=== PATIENT | female | born 1975 | race Caucasian/White ===

== ENCOUNTER → 2018-07-20 | Outpatient (CLI) | payer OTHER ==
--- NOTE | 2018-07-21 11:20 | MM ---
Reason for exam: screening (asymptomatic). Last mammogram was performed 6 years and 4 months ago. History: Family history of breast cancer in maternal aunt at age 70. Physical Findings: A clinical breast exam by your physician is recommended on an annual basis and results should be correlated with mammographic findings. MG 3D Screening Mammo W/Cad Bilateral CC and MLO view(s) were taken. Prior study comparison: March 15, 2012, CAD bilateral diagnostic mammogram. There are scattered fibroglandular densities. No significant changes when compared with prior studies. ASSESSMENT: Benign, BI-RAD 2 RECOMMENDATION: Routine screening mammogram of both breasts in 1 year.
== END | disposition home or self-care (01) ==
LOC: RADMAMWWP 07:40
PROVIDERS: ATTEND Obstetrics & Gynecology
DX: Z12.31 Encounter for screening mammogram for malignant neoplasm of breast (principal); Z80.3 Family history of malignant neoplasm of breast
CPT/HCPCS: 77063; 77067

== ENCOUNTER → 2018-08-17 | Outpatient (CLI) | payer OTHER ==
--- NOTE | 2018-08-17 14:52 | MR ---
EXAMINATION TYPE: MR brain wo con DATE OF EXAM: 08/17/2018 COMPARISON: NONE HISTORY: Migraines TECHNIQUE: Multiplanar, multisequence images of the brain and brainstem is performed without IV contrast. FINDINGS: Diffusion weighted images demonstrate no evidence of a recent infarct or other diffusion ab normality. There is no extra-axial fluid collection. There are very few scattered foci of subcortica l T2/FLAIR hyperintensity measuring 1 to 2 mm (approximately 2 on the right and 3 on the left althoug h 2 of these may be artifact in the temporal lobes). The ventricular system and cisternal spaces are normal in size and appearance. The brain volume is age appropriate. Midline structures demonstrate normal morphology. The craniocervical junction appears within normal limits. The dural venous sinuses appear patent. The visualized sinuses demonstrate a left maxillary m ucosal retention cyst measuring 1.3 cm and mild mucosal thickening of the ethmoid and maxillary sinus es. Frontal sinuses and sphenoid sinuses are well aerated as are the mastoid air cells. The globes ar e intact. IMPRESSION: 1. Few punctate foci of subcortical white matter change may be on the basis of microangiopathy or seq uela of headaches. Demyelinating disease is not suspected on MRI given the distribution. 2. Mild paranasal sinus disease and 1.3 cm left maxillary mucosal retention cyst.
== END ==
LOC: RADMRIMAIN 10:47
PROVIDERS: ATTEND Psychiatry & Neurology Neurology
DX: R90.89 Other abnormal findings on diagnostic imaging of central nervous system (principal)
CPT/HCPCS: 70551

== ENCOUNTER → 2021-06-05 | Outpatient (CLI) | payer OTHER ==
[2021-06-06 14:29] LABS: Coronavirus SARS CoV-2 Not Detected (Not Detected)
== END | disposition home or self-care (01) ==
LOC: LABPAT 15:37
PROVIDERS: ATTEND Surgery Plastic and Reconstructive Surgery
DX: Z03.818 Encounter for observation for suspected exposure to other biological agents ruled out (principal); Z20.822 Contact with and (suspected) exposure to COVID-19
CPT/HCPCS: U0003; C9803; U0005

== ENCOUNTER 2021-06-10 08:14 | Day surgery (SDC) | payer OTHER ==
[2021-06-08 09:08] VITALS: BMI 38.9
--- NOTE | 2021-06-10 04:23 | P.GSHP ---
History of Present Illness H&P Date: 06/10/21 CHIEF COMPLAINT: Colon screen HISTORY OF PRESENT ILLNESS: The patient is a 46-year-old female who presents for colon screen. Lower endoscopy was offered for further evaluation and management. PAST MEDICAL HISTORY: Please see list. PAST SURGICAL HISTORY: Please see list. MEDICATIONS: Please see list. ALLERGIES: Please see list. SOCIAL HISTORY: No illicit drug use FAMILY HISTORY: No reports of Crohn disease or ulcerative colitis. REVIEW OF ORGAN SYSTEMS: CONSTITUTIONAL: No reports of fevers or chills. PHYSICAL EXAM: VITAL SIGNS: Stable GENERAL: Well-developed pleasant in no acute distress. HEENT: No scleral icterus. Extraocular movements grossly intact. Moist buccal mucosa. NECK: Supple without lymphadenopathy. CHEST: Unlabored respirations. Equal bilateral excursions. CARDIOVASCULAR: Regular rate and rhythm. Distal 2+ pulses. ABDOMEN: Soft, nontender, nondistended. MUSCULOSKELETAL: No clubbing, cyanosis, or edema. ASSESSMENT: 1. Colon screen. PLAN: 1. Recommend proceeding with a lower endoscopy Past Medical History Past Medical History: GERD/Reflux Additional Past Medical History / Comment(s): MIGRAINES History of Any Multi-Drug Resistant Organisms: None Reported Past Surgical History: Cholecystectomy Past Anesthesia/Blood Transfusion Reactions: No Reported Reaction Additional Past Anesthesia/Blood Transfusion Reaction / Comment(s): CLAUSTROPHOBIC Past Psychological History: No Psychological Hx Reported Smoking Status: Former smoker Past Alcohol Use History: Occasional Past Drug Use History: None Reported - Past Family History Father Family Medical History: Cancer, Diabetes Mellitus, Deep Vein Thrombosis (DVT) Additional Family Medical History / Comment(s): COLON Medications and Allergies Home Medications Medication Instructions Recorded Confirmed Type Naproxen 500 mg PO DIRECTED PRN 06/08/21 06/08/21 History Omeprazole 1 tab PO DAILY 06/08/21 06/08/21 History Allergies Allergy/AdvReac Type Severity Reaction Status Date / Time Penicillins Allergy Unknown Verified 06/08/21 09:01 Childhood Sulfa (Sulfonamide Allergy Unknown Verified 06/08/21 09:01 Antibiotics) sulfamethoxazole Allergy Rash/Hives Verified 06/08/21 09:01 [From Bactrim] trimethoprim [From Bactrim] Allergy Rash/Hives Verified 06/08/21 09:01 prochlorperazine AdvReac Unknown Verified 06/08/21 09:01 [From Compazine]
[~2021-06-10 08:14] MED LIST: LACTATED RINGERS 1,000 ML IV SCH; LIDOCAINE 1% (10MG/ML) FOR IV START INTRADERMA PRN
[2021-06-10 09:35] VITALS: TEMP 97.5
[2021-06-10] MEDS ORDERED: fentaNYL (PF) 50 MCG/ML 2 ML AMP ONE (10:03)
[2021-06-10] MEDS ORDERED: PROPOFOL 10 MG/ML 20 ML VIAL IV ONE (10:03)
[2021-06-10] MEDS ORDERED: LIDOCAINE 1% INJ 10MG/ML (20 ML MDV) ONE (10:03)
[2021-06-10] MEDS ORDERED: MIDAZOLAM 2 MG/2 ML VIAL ONE (10:03)
--- NOTE | 2021-06-10 10:27 | P.PCN ---
Date of Procedure: 06/10/21 Description of Procedure: PREOPERATIVE DIAGNOSIS: Family history malignant colon polyps Colonoscopy screening POSTOPERATIVE DIAGNOSIS: Tubular adenoma descending colon OPERATION: Colonoscopy to the ileocecal valve and appendiceal orifice, cecum Colonoscopy with hot snare polypectomy SURGEON: Tatiana Arias MD. ANESTHESIA: MAC. INDICATIONS: The patient is an 46-year-old male who presents family history of malignant colon. This is her first colonoscopy. Benefits and risks were described and informed consent was obtained. DESCRIPTION OF PROCEDURE: The patient had undergone Sutab prep. The patient had been brought into the operating room and laid in the left lateral decubitus position. After adequate intravenous sedation, the rectum was examined with 2% lidocaine jelly. No external hemorrhoids were encountered. The rectal tone was within normal limits. No lesions were palpated in the rectal vault. An Olympus colonoscope was advanced until the cecum, ileocecal valve and appendiceal orifice were clearly viewed. The prep was good. Sigmoid diverticulosis was encountered. Colonic polyps were found and removed. No evidence of focal colitis was found. Retroflexion of the scope demonstrated grade 1 internal hemorrhoids without active bleeding or inflammation. The colon was desufflated. The patient had tolerated the procedure well. Withdrawal time was over 6 minutes. FINDINGS: Aronchick preparation quality scale 2 (1-5) Internal hemorrhoids, grade 1 No external hemorrhoids No arteriovenous malformations. Sigmoid diverticulosis Removal of 1 polyps: - Snare polypectomy 30 cm from the anal verge, 10 mm tubulovillous adenoma polyp, sigmoid colon No focal colitis. RECOMMENDATIONS: Repeat colonoscopy in 2024 Plan - Discharge Summary Discharge Rx Participant: No New Discharge Prescriptions: Continue Naproxen 500 mg PO DIRECTED PRN PRN Reason: Migraine Headache Omeprazole 1 tab PO DAILY Discharge Medication List Naproxen 500 mg PO DIRECTED PRN 06/08/21 [History] Omeprazole 1 tab PO DAILY 06/08/21 [History] Follow up Appointment(s)/Referral(s): Tatiana Arias MD [STAFF PHYSICIAN] - As Needed Patient Instructions/Handouts: Diverticulosis Diet (GEN), Diverticulosis (DC), Colorectal Polyps (GEN) Activity/Diet/Wound Care/Special Instructions: Repeat colonoscopy in 3 years2034 Discharge Disposition: HOME SELF-CARE
[2021-06-10 10:48] VITALS: BP 118/68; PULSE 81; RESP 18
== END 2021-06-10 10:55 | disposition home or self-care (01) ==
LOC: ORWHC2ENDO 08:14
PROVIDERS: ATTEND Surgery Plastic and Reconstructive Surgery
DX: D12.5 Benign neoplasm of sigmoid colon (principal); Z12.11 Encounter for screening for malignant neoplasm of colon; K57.30 Diverticulosis of large intestine without perforation or abscess without bleeding; K64.0 First degree hemorrhoids; K21.9 Gastro-esophageal reflux disease without esophagitis; Z80.0 Family history of malignant neoplasm of digestive organs; Z90.49 Acquired absence of other specified parts of digestive tract; G43.909 Migraine, unspecified, not intractable, without status migrainosus; F40.240 Claustrophobia; Z87.891 Personal history of nicotine dependence; Z83.3 Family history of diabetes mellitus; Z80.9 Family history of malignant neoplasm, unspecified; Z82.49 Family history of ischemic heart disease and other diseases of the circulatory system; Z79.899 Other long term (current) drug therapy; Z88.0 Allergy status to penicillin; Z88.2 Allergy status to sulfonamides; Z88.8 Allergy status to other drugs, medicaments and biological substances
CPT/HCPCS: 81025; 88305; 45385; J2250; J2001; J3010; J2704

== ENCOUNTER → 2022-05-10 | Outpatient (CLI) | payer OTHER ==
--- NOTE | 2022-05-10 10:03 | XR ---
EXAMINATION TYPE: XR KUB DATE OF EXAM: 05/10/2022 9:23 AM CLINICAL HISTORY: Right posterior flank pain. No history of kidney stones. TECHNIQUE: supine KUB images of the abdomen are obtained. COMPARISON: None. FINDINGS: There is moderate stool throughout the entire colon particularly in the descending and moore sverse colon. There is no visceromegaly, pneumoperitoneum, or abnormal calcification appreciated. In particular, there is no abnormal calcification projecting over the right kidney or ureter. Several ca lcifications in the right hemipelvis favor phleboliths. The lung bases not imaged. Clips project over the right upper quadrant, presumably from previous cholecystectomy. There are facet degenerative anthony nges of the lower lumbosacral spine. IMPRESSION: No abnormal calcification projecting over the right kidney or ureter. Calcifications in the right hem ipelvis favor phleboliths. Moderate stool throughout the colon but particularly in the ascending and transverse colon.
== END | disposition home or self-care (01) ==
LOC: RADXRMAIN 09:08
PROVIDERS: ATTEND Urology
DX: I87.8 Other specified disorders of veins (principal); R19.5 Other fecal abnormalities; N23 Unspecified renal colic
CPT/HCPCS: 74018

== ENCOUNTER 2022-05-12 04:05 | Inpatient (IN) | payer OTHER ==
[2022-05-12] MEDS ORDERED: KETOROLAC 15 MG/ML 1 ML VIAL IVP STA (04:18)
[2022-05-12] MEDS ORDERED: ONDANSETRON 4 MG/2 ML VIAL IVP STA (04:18)
[2022-05-12] MEDS ORDERED: SODIUM CHLORIDE 0.9% 1,000 ML IV ONE (04:18)
[2022-05-12 04:44] LABS: Basophils # (A) 0.1 k/uL (0-0.2); Basophils % (A) 1 %; Eosinophils # (A) 0.2 k/uL (0-0.7); Eosinophils % (A) 2 %; HCT 43.5 % (34.0-46.0); HGB 14.9 gm/dL (11.4-16.0); Lymphocytes % (A) 24 %; MCH 29.7 pg (25.0-35.0); MCHC 34.2 g/dL (31.0-37.0); Mean Platelet Volume 7.7; Monocytes # (A) 0.4 k/uL (0-1.0); Monocytes % (A) 5 %; Neutrophils # (A) 5.6 k/uL (1.3-7.7); Neutrophils % (A) 67 %; Platelet Count 288 k/uL (150-450); RDW 12.8 % (11.5-15.5); WBC 8.3 k/uL (3.8-10.6)
[2022-05-12 04:57] LABS: ALT 37 U/L (4-34); AST 32 U/L (14-36); African American GFR (CKD) >90 (>60 ml/min/1.73 sqM); Albumin 4.5 g/dL (3.5-5.0); Alkaline Phosphatase 87 U/L (38-126); Anion Gap 8 mmol/L; Blood Urea Nitrogen 18 mg/dL (7-17); Calcium 9.6 mg/dL (8.4-10.2); Carbon Dioxide 26 mmol/L (22-30); Chloride 104 mmol/L (98-107); Glucose 133 mg/dL (74-99); Magnesium 1.7 mg/dL (1.6-2.3); Non-African American GFR(CKD) >90 (>60 ml/min/1.73 sqM); Potassium 4.6 mmol/L (3.5-5.1); Sodium 138 mmol/L (137-145); Total Bilirubin 0.5 mg/dL (0.2-1.3); Total Protein 7.1 g/dL (6.3-8.2)
[2022-05-12 04:59] LABS: Appearance,Urine Clear (Clear); Bacteria,Urine Rare /hpf; Bilirubin,Urine Negative (Negative); Blood,Urine Large (Negative); Color,Urine Yellow; Glucose,Urine (UA) Negative (Negative); Ketones,Urine Negative (Negative); Leukocyte Esterase,Urine Small (Negative); Mucus,Urine Rare /hpf; Nitrite,Urine Negative (Negative); Protein,Urine 1+ (Negative); RBC,Urine 87 /hpf (0-5); Specific Gravity,Urine 1.027 (1.001-1.035); Squamous Epithelial Cell,Urine 3 /hpf (0-4); Urobilinogen,Urine <2.0 mg/dL (<2.0); WBC,Urine 4 /hpf (0-5)
--- NOTE | 2022-05-12 05:09 | CT ---
EXAMINATION TYPE: CT abdomen pelvis wo con DATE OF EXAM: 05/12/2022 COMPARISON: None HISTORY: N/V WORSENING RT FLANK PAIN SINCE DEC CT DLP: 1085.6 mGycm Automated exposure control for dose reduction was used. Images obtained from the diaphragm to the floor the pelvis with no contrast. Lung bases are clear. No pleural effusion. Heart size is normal. No pericardial effusion. Liver splee n and stomach pancreas appear intact. The bile duct are not dilated. There are clips from cholecystec patience. There is no adrenal mass. Right kidney is enlarged with hydronephrosis and hydroureter. There is a 6 mm obstructing calculus in the distal right ureter. The bladder distends smoothly. Uterus is large an d there appears to be thickening of the endometrial cavity with high attenuation. No internal hernia. No free fluid in the pelvis. No evidence of adnexal mass. The appendix is posterior and appears norm al. There is no mesenteric edema. No ascites or free air. No bowel obstruction. No calculus seen within t he kidneys. Left kidney appears normal. The lumbar vertebra have normal alignment. Posterior elements are intact. No compression fracture. [place] pelvis is intact. The hip joints are intact. IMPRESSION: Obstructing calculus in the distal right ureter with right-sided hydronephrosis and hydroureter. Enlarged uterus with possible endometrial mass. Ultrasound is recommended for further evaluation.
[2022-05-12] MEDS ORDERED: METOCLOPRAMIDE 5 MG/ML 2 ML VIAL IVP STA (05:44)
[2022-05-12] MEDS ORDERED: MORPHINE SULFATE 4 MG/ML SYRINGE IVP STA (05:44)
[2022-05-12] MEDS ORDERED: NALOXONE 0.4 MG/ML 1 ML VIAL IV PRN (05:59)
[2022-05-12] MEDS ORDERED: MORPHINE SULFATE 4 MG/ML SYRINGE IV PRN (05:59)
[2022-05-12] MEDS ORDERED: KETOROLAC 15 MG/ML 1 ML VIAL IVP PRN (05:59)
--- NOTE | 2022-05-12 06:06 | ED ---
General Adult HPI - General Chief complaint: Nausea/Vomiting/Diarrhea Stated complaint: Flank Pain Time Seen by Provider: 05/12/22 04:14 Source: patient Mode of arrival: ambulatory Limitations: no limitations - History of Present Illness Initial comments: This is a 47-year-old female who presents emergency department for right-sided flank pain. The patient was being seen and evaluated at her urologist office last week and did have an x-ray performed that showed possible stones in the right side. The patient was scheduled to have a computed tomography scan on Tuesday however she stated she had continued and worsening right-sided flank pain that began last night. The patient stated the pain became so severe she needed to be seen in the emergency department. The patient reported associated nausea and vomiting as well as radiation of the right flank to the groin. The patient denied any similar episodes in the past. The patient on evaluation was in mild distress secondary to right flank pain. The patient denied any fevers and chills. - Related Data Home Medications Medication Instructions Recorded Confirmed Naproxen 500 mg PO DIRECTED PRN 06/08/21 06/08/21 Omeprazole 1 tab PO DAILY 06/08/21 06/08/21 Allergies Allergy/AdvReac Type Severity Reaction Status Date / Time Penicillins Allergy Unknown Verified 05/12/22 04:11 Childhood Sulfa (Sulfonamide Allergy Unknown Verified 05/12/22 04:11 Antibiotics) sulfamethoxazole Allergy Rash/Hives Verified 05/12/22 04:11 [From Bactrim] trimethoprim [From Bactrim] Allergy Rash/Hives Verified 05/12/22 04:11 prochlorperazine AdvReac Unknown Verified 05/12/22 04:11 [From Compazine] Review of Systems ROS Statement: Those systems with pertinent positive or pertinent negative responses have been documented in the HPI. ROS Other: All systems not noted in ROS Statement are negative. Past Medical History Past Medical History: No Reported History History of Any Multi-Drug Resistant Organisms: None Reported Past Surgical History: Ablation, Cholecystectomy Past Psychological History: No Psychological Hx Reported Smoking Status: Never smoker Past Alcohol Use History: Occasional Past Drug Use History: None Reported General Exam Limitations: no limitations General appearance: alert, in distress (In moderate distress secondary to right flank pain) Head exam: Present: atraumatic, normocephalic, normal inspection Eye exam: Present: normal appearance, PERRL Pupils: Present: normal accommodation ENT exam: Present: normal exam, normal oropharynx, mucous membranes moist Neck exam: Present: normal inspection, full ROM Respiratory exam: Present: normal lung sounds bilaterally Cardiovascular Exam: Present: regular rate, normal rhythm, normal heart sounds GI/Abdominal exam: Present: soft, normal bowel sounds Extremities exam: Present: normal inspection, full ROM Back exam: Present: normal inspection, full ROM, CVA tenderness (R) Neurological exam: Present: alert, oriented X3, CN II-XII intact Psychiatric exam: Present: normal affect, normal mood Skin exam: Present: warm, dry Course Vital Signs 05/12/22 04:11 Temperature 98 F Pulse Rate 96 Respiratory 16 Rate Blood Pressure 152/98 O2 Sat by Pulse 96 Oximetry Medical Decision Making - Medical Decision Making Was pt. sent in by a medical professional or institution (, PA, CREEL CLERK, urgent care, hospital, or penitentiary...) When possible be specific @ -No Did you speak to anyone other than the patient for history (EMS, parent, family, police, friend...)? What history was obtained from this source @ -No Did you review nursing and triage notes (agree or disagree)? Why? @ -I reviewed and agree with nursing and triage notes Were old charts reviewed (outside hosp., previous admission, EMS record, old EKG, old radiological studies, urgent care reports/EKG's, penitentiary records)? Report findings @ -No old charts were reviewed Differential Diagnosis (chest pain, altered mental status, abdominal pain women, abdominal pain men, vaginal bleeding, weakness, fever, dyspnea, syncope, headache, dizziness, GI bleed, back pain, seizure, CVA, palpatations, mental health)? @ -Kidney stone, hydronephrosis, UTI, pyelonephritis EKG interpreted by me (3pts min.). @ -None X-rays interpreted by me (1pt min.). @ -None done CT interpreted by me (1pt min.). @ -Computed tomography scan of the abdomen and pelvis without contrast was obtained and was interpreted by myself showing an obstructing calculus in the distal right ureter with right-sided hydronephrosis and hydroureter with a stone measuring 6 mm. There is also an enlarged uterus with possible endometrial mass in an ultrasound was recommended at this time. U/S interpreted by me (1pt. min.). @ -Complete pelvic ultrasound was ordered and was pending at this time. What testing was considered but not performed or refused? (CT, X-rays, U/S, labs)? Why? @ -None What meds were considered but not given or refused? Why? @ -None Did you discuss the management of the patient with other professionals (professionals i.e. Dr., PA, CREEL CLERK, lab, RT, psych nurse, medical social worker, automotive technician, teacher, inspectors and regulatory officers, nurse case management)? Give summary @ -Yes, on-call urologist, Dr. Villatoro. Was smoking cessation discussed for >3mins.? @ -No Was critical care preformed (if so, how long)? @ -No Were there social determinants of health that impacted care today? How? (Homel essness, low income, unemployed, alcoholism, drug addiction, transportation, low edu. Level, literacy, decrease access to med. care, alf, rehab)? @ -No Was there de-escalation of care discussed even if they declined (Discuss DNR or withdrawal of care, Hospice)? DNR status @ -No What co-morbidities impacted this encounter? (DM, HTN, Smoking, COPD, CAD, Cancer, CVA, ARF, Chemo, Hep., AIDS, mental health diagnosis, sleep apnea, morbid obesity)? @ -None Was patient admitted / discharged? Hospital course, mention meds given and route, prescriptions, significant lab abnormalities, going to OR and other pertinent info. @ -The patient was seen and evaluated emergency department. Physical exam, the patient was resting in bed in moderate distress secondary to right flank pain. Laboratory workup was obtained and showed a urinalysis consistent with UTI with blood present. Computed tomography scan did confirm this. The patient did receive Toradol and Zofran and on reevaluation only had some mild improvement. The urologist on-call, Dr. Villatoro, was contacted regarding the patient as she did have a 6 L stone. He did suggest that the patient could be discharged home if her pain was under control however would evaluate the patient in observation if the patient continued pain. On reevaluation, the patient did have continued pain and stated that she could not go home with this discomfort. The patient was given morphine as well as Reglan for her continued pain and nausea. The patient also had a possible endometrial mass an ultrasound was ordered at this time but was still pending for further workup and evaluation of that. The patient was agreeable to being placed in observation and she was placed observation in stable condition. Undiagnosed new problem with uncertain prognosis? @ -No Drug Therapy requiring intensive monitoring for toxicity (Heparin, Nitro, Insulin, Cardizem)? @ -No Were any procedures done? @ -No Diagnosis/symptom? @ -Kidney stone with hydronephrosis Acute, or Chronic, or Acute on Chronic? @ -Acute Uncomplicated (without systemic symptoms) or Complicated (systemic symptoms)? @ -Complicated Side effects of treatment? @ -No Exacerbation, Progression, or Severe Exacerbation? @ -No Poses a threat to life or bodily function? How? (Chest pain, [place], [place], pneumonia, PE, COPD, DKA, ARF, appy, cholecystitis, CVA, Diverticulitis, Homicidal, Suicidal, threat to staff... and all critical care pts) @ -No - Lab Data Result diagrams: 05/12/22 04:34 05/12/22 04:34 Lab Results 05/12/22 05/12/22 05/12/22 Range/Units 04:34 04:34 04:34 WBC 8.3 (3.8-10.6) k/uL RBC 5.00 (3.80-5.40) m/uL Hgb 14.9 (11.4-16.0) gm/dL Hct 43.5 (34.0-46.0) % MCV 87.0 (80.0-100.0) fL MCH 29.7 (25.0-35.0) pg MCHC 34.2 (31.0-37.0) g/dL RDW 12.8 (11.5-15.5) % Plt Count 288 (150-450) k/uL MPV 7.7 Neutrophils % 67 % Lymphocytes % 24 % Monocytes % 5 % Eosinophils % 2 % Basophils % 1 % Neutrophils # 5.6 (1.3-7.7) k/uL Lymphocytes # 2.0 (1.0-4.8) k/uL Monocytes # 0.4 (0-1.0) k/uL Eosinophils # 0.2 (0-0.7) k/uL Basophils # 0.1 (0-0.2) k/uL Sodium 138 (137-145) mmol/L Potassium 4.6 (3.5-5.1) mmol/L Chloride 104 (98-107) mmol/L Carbon Dioxide 26 (22-30) mmol/L Anion Gap 8 mmol/L BUN 18 H (7-17) mg/dL Creatinine 0.59 (0.52-1.04) mg/dL Est GFR (CKD-EPI)AfAm >90 (>60 ml/min/1.73 sqM) Est GFR (CKD-EPI)NonAf >90 (>60 ml/min/1.73 sqM) Glucose 133 H (74-99) mg/dL Calcium 9.6 (8.4-10.2) mg/dL Magnesium 1.7 (1.6-2.3) mg/dL Total Bilirubin 0.5 (0.2-1.3) mg/dL AST 32 (14-36) U/L ALT 37 H (4-34) U/L Alkaline Phosphatase 87 (38-126) U/L Total Protein 7.1 (6.3-8.2) g/dL Albumin 4.5 (3.5-5.0) g/dL Urine Color Yellow Urine Appearance Clear (Clear) Urine pH 6.0 (5.0-8.0) Ur Specific [place] 1.027 (1.001-1.035) Urine Protein 1+ H (Negative) Urine Glucose (UA) Negative (Negative) Urine Ketones Negative (Negative) Urine Blood Large H (Negative) Urine Nitrite Negative (Negative) Urine Bilirubin Negative (Negative) Urine Urobilinogen <2.0 (<2.0) mg/dL Ur Leukocyte Esterase Small H (Negative) Urine RBC 87 H (0-5) /hpf Urine WBC 4 (0-5) /hpf Ur Squamous Epith Cells 3 (0-4) /hpf Urine Bacteria Rare H (None) /hpf Urine Mucus Rare H (None) /hpf Disposition Clinical Impression: Kidney stone, Hydronephrosis Disposition: ADMITTED IP TO THIS [facility] Condition: Stable Is patient prescribed a controlled substance at d/c from ED?: No Referrals: Angel Adams MD [Primary Care Provider] - 1-2 days Time of Disposition: 05:30 Decision to Admit Reason: Admit from EC Decision Date: 05/12/22 Decision Time: 05:30
[2022-05-12] MEDS: SODIUM CHLORIDE 0.9% 1,000 ML IV SCH ×2 (06:19→19:45)
--- NOTE | 2022-05-12 07:41 | US ---
EXAMINATION TYPE: US transvaginal DATE OF EXAM: 05/12/2022 COMPARISON: CT abdomen pelvis 05/12/2022 CLINICAL HISTORY: Endometrial mass. Ablation 6 years ago. Right pelvic pain. Abnormal CT TECHNIQUE: Transvaginal (TV). Date of LMP: 6 years ago EXAM MEASUREMENTS: Uterus: 11.2 x 9.7 x 6.7 cm Right Ovary: unable to visualize Left Ovary: unable to visualize 1. Uterus: Anteverted Nabothian cyst 2. Endometrium: vascular mostly solid area = 7.5 x 8.5 x 5.2cm 3. Right Ovary: Obscured by overlying bowel gas 4. Left Ovary: Obscured by overlying bowel gas 5. Bilateral Adnexa: wnl 6. Posterior cul-de-sac: wnl IMPRESSION: 1. Vascular solid mass demonstrated within the endometrium measuring up to 8.5 cm which raises isaias rn for endometrial cancer. Direct visualization with sampling is recommended. 2. Both ovaries are not visualized due to overlying bowel gas.
--- NOTE | 2022-05-12 10:11 | P.GSHP ---
History of Present Illness H&P Date: 05/12/22 Chief Complaint: Right flank pain The patient is a 47-year-old female with a past medical history of GERD and migraines. She presented to the emergency department early this morning for right sided flank pain that radiates to her right groin. Patient denies any history of previous kidney stones. She states that her sister has had several stones and is well-known to Dr. Campos. The patient reports occasional UTI's. Last month she saw her PCP due to urgency and abdominal discomfort. A urinalysis was performed which showed some microscopic hematuria. She completed a course of antibiotics but continued to have urgency and discomfort. She made an appointment to see Dr. Campos and was seen in our office this past Tuesday. She had a KUB x-ray which revealed several calcifications in the right hemipelvis adapted physical education aide phleboliths. No abnormal calcifications projecting over the right kidney or ureter. The patient was scheduled to have a CT scan next Tuesday. However, she reported that her pain to her right flank worsened and became intolerable with associated nausea and vomiting. An abdomen/pelvis CT was performed which showed an obstructing calculus in the distal right ureter with right-sided hydronephrosis and hydroureter. There was also an incidental finding of a possible endometrial mass. A transvaginal ultrasound was performed which confirmed avascular solid mass within the endometrium measuring up to 8.5 cm which raises concern for endometrial cancer. - Constitutional Constitutional: Denies chills, Denies fever - EENT Ears, nose, mouth and throat: Denies headache - Cardiovascular Cardiovascular: Denies chest pain, Denies shortness of breath - Genitourinary (Female) Genitourinary: Reports flank pain, Reports urgency, Denies dysuria Past Medical History Past Medical History: No Reported History History of Any Multi-Drug Resistant Organisms: None Reported Past Surgical History: Ablation, Cholecystectomy Past Psychological History: No Psychological Hx Reported Smoking Status: Never smoker Past Alcohol Use History: Occasional Past Drug Use History: None Reported Medications and Allergies Home Medications Medication Instructions Recorded Confirmed Type Naproxen 500 mg PO BID PRN 06/08/21 05/12/22 History Cholecalciferol [Vitamin D3 (25 50 mcg PO DAILY 05/12/22 05/12/22 History Mcg = 1000 Iu)] Fish Oil(Unknown) 1 cap PO DAILY 05/12/22 05/12/22 History Multivitamins, Thera [Multivitamin 1 tab PO DAILY 05/12/22 05/12/22 History (formulary)] Omeprazole 20 mg PO DAILY 05/12/22 05/12/22 History SUMAtriptan succinate [Imitrex] 100 mg PO DAILY PRN 05/12/22 05/12/22 History Allergies Allergy/AdvReac Type Severity Reaction Status Date / Time Penicillins Allergy Rash/Hives Verified 05/12/22 08:05 Sulfa (Sulfonamide Allergy Rash & Verified 05/12/22 08:05 Antibiotics) "Face Froze" sulfamethoxazole Allergy Rash/Hives Verified 05/12/22 08:05 [From Bactrim] trimethoprim [From Bactrim] Allergy Rash/Hives Verified 05/12/22 08:05 prochlorperazine AdvReac Shaking Verified 05/12/22 08:05 [From Compazine] Surgical - Exam Vital Signs Temp Pulse Resp BP Pulse Ox 98 F 96 16 152/98 96 05/12/22 04:11 05/12/22 04:11 05/12/22 04:11 05/12/22 04:11 05/12/22 04:11 General: Well developed, well nourished. No acute distress. HEENT: Head is atraumatic, normocephalic. CV: Heart regular in rate and rhythm, no peripheral edema Lungs: Respirations even and nonlabored. Abdomen/GI: Soft, nondistended. Right lower quadrant and right flank tender to palpitation Skin: Warm and dry Neurologic: Awake, alert and oriented times 3. CN II-XII grossly intact. No focal deficits. Psychiatric: Appropriate mood and affect. Results - Labs 05/12/22 04:34 05/12/22 04:34 Abnormal Lab Results - Last 24 Hours (Table) 05/12/22 05/12/22 Range/Units 04:34 04:34 BUN 18 H (7-17) mg/dL Glucose 133 H (74-99) mg/dL ALT 37 H (4-34) U/L Urine Protein 1+ H (Negative) Urine Blood Large H (Negative) Ur Leukocyte Esterase Small H (Negative) Urine RBC 87 H (0-5) /hpf Urine Bacteria Rare H (None) /hpf Urine Mucus Rare H (None) /hpf Diabetes panel 05/12/22 Range/Units 04:34 Sodium 138 (137-145) mmol/L Potassium 4.6 (3.5-5.1) mmol/L Chloride 104 (98-107) mmol/L Carbon Dioxide 26 (22-30) mmol/L BUN 18 H (7-17) mg/dL Creatinine 0.59 (0.52-1.04) mg/dL Glucose 133 H (74-99) mg/dL Calcium 9.6 (8.4-10.2) mg/dL AST 32 (14-36) U/L ALT 37 H (4-34) U/L Alkaline Phosphatase 87 (38-126) U/L Total Protein 7.1 (6.3-8.2) g/dL Albumin 4.5 (3.5-5.0) g/dL Calcium panel 05/12/22 Range/Units 04:34 Calcium 9.6 (8.4-10.2) mg/dL Albumin 4.5 (3.5-5.0) g/dL Pituitary panel 05/12/22 Range/Units 04:34 Sodium 138 (137-145) mmol/L Potassium 4.6 (3.5-5.1) mmol/L Chloride 104 (98-107) mmol/L Carbon Dioxide 26 (22-30) mmol/L BUN 18 H (7-17) mg/dL Creatinine 0.59 (0.52-1.04) mg/dL Glucose 133 H (74-99) mg/dL Calcium 9.6 (8.4-10.2) mg/dL Adrenal panel 05/12/22 Range/Units 04:34 Sodium 138 (137-145) mmol/L Potassium 4.6 (3.5-5.1) mmol/L Chloride 104 (98-107) mmol/L Carbon Dioxide 26 (22-30) mmol/L BUN 18 H (7-17) mg/dL Creatinine 0.59 (0.52-1.04) mg/dL Glucose 133 H (74-99) mg/dL Calcium 9.6 (8.4-10.2) mg/dL Total Bilirubin 0.5 (0.2-1.3) mg/dL AST 32 (14-36) U/L ALT 37 H (4-34) U/L Alkaline Phosphatase 87 (38-126) U/L Total Protein 7.1 (6.3-8.2) g/dL Albumin 4.5 (3.5-5.0) g/dL - Imaging Abdominal x-ray: report reviewed CT scan - abdomen: report reviewed CT scan - pelvis: report reviewed US - pelvic: report reviewed Assessment and Plan Assessment: The patient was examined in the emergency department. Her mother was at the bedside. The patient states that she was unable to wait until this coming Tuesday for a computed tomography scan. She had severe right flank pain that migrated to her right groin with associated nausea and vomiting early this morning. She reports her pain is well controlled now. She denies any gross hematuria or dysuria. The patient was informed that her calculus was 6 mm and that she is a 40-50% chance of passing the stone spontaneously. However, due to severity of her discomfort surgery was recommended. Imaging was reviewed by Dr. Villatoro. She will be scheduled for a ureteroscopy, laser lithotripsy, and possible stent insertion tomorrow. The patient is agreeable to this plan. She is also aware of the endometrial mass finding. WBC 8.3, hemoglobin 14.9, BUN 18, creatinine 0.59. She is afebrile, and vital signs are stable, and she is on room air. (1) Right distal ureteral calculus Current Visit: Yes Status: Acute Code(s): N20.1 - CALCULUS OF URETER SNOMED Code(s): 465641655 (2) Kidney stone Current Visit: Yes Status: Acute Code(s): N20.0 - CALCULUS OF KIDNEY SNOMED Code(s): 65881559 Plan: - Toradol 15 mg IVP Q6H scheduled - Continue morphine for severe pain - Rocephin 1 g Q24 hr - Continue antiemetics - Continue IVF - Nothing by mouth after midnight - Ureteroscopy with laser lithotripsy scheduled for tomorrow - Consulted CYLINDER SANDER OPERATOR regarding endometrial mass Impression and plan of care have been directed as dictated by the signing p hysician. Skylar Diaz nurse practitioner acting as scribe for signing physician. Skylar Diaz [facility]- Palliative Care/Urology [facility] [id number] Email: [email or web address] I personally performed and participated in the history, physical, the decision making, I agree with the assessment and plan of CERTIFIED CAREGIVER
[2022-05-12] MEDS: KETOROLAC 15 MG/ML 1 ML VIAL IVP SCH ×2 (12:29→18:03)
--- NOTE | 2022-05-12 17:01 | P.HPOB ---
History of Present Illness H&P Date: 05/12/22 Chief Complaint: Incidental Finding of Endometrial Mass Ms. Haji is a 47 year old female who presented to the emergency department with a history of right flank pain and was found to have an obstructing calculus in the right ureter on CT of the abdomen. Gynecology was consulted because an endometrial mass was also incidentally found on CT. A transvaginal ultrasound was performed to further investigate the endometrial mass. Ultrasound was notable for uterus measuring 11.2 x 9.7 6.7. Within the endometrium was a vascular and mostly solid area measuring 7.5 by 8.5 by 5.2 cm. Bilateral ovaries were unable to be visualized. Bilateral adnexa were within normal limits. 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 Gynecologic history: Menarche age 14. Had regular monthly menses throughout her life but has used contraception to control heavy bleeding. She had an endometrial ablaiton 6 years ago and now only has light spotting every 2-3 months. She still experiences moliminal symptoms and does not believe that she is in menopause. She denies any history of abnormal pap smear. She follows regularly with Dr. Fagan outpatient and last visit was 1 year ago. Review of Systems Genitourinary: Reports as per HPI Menstruation: Reports as per HPI Past Medical History Past Medical History: GERD/Reflux Additional Past Medical History / Comment(s): Migraines (takes Naproxen at home) History of Any Multi-Drug Resistant Organisms: None Reported Past Surgical History: Ablation, Cholecystectomy Additional Past Surgical History / Comment(s): Cyst on right wrist removed. Smoking Status: Never smoker Medications and Allergies Home Medications Medication Instructions Recorded Confirmed Type Naproxen 500 mg PO BID PRN 06/08/21 05/12/22 History Cholecalciferol [Vitamin D3 (25 50 mcg PO DAILY 05/12/22 05/12/22 History Mcg = 1000 Iu)] Fish Oil(Unknown) 1 cap PO DAILY 05/12/22 05/12/22 History Multivitamins, Thera [Multivitamin 1 tab PO DAILY 05/12/22 05/12/22 History (formulary)] Omeprazole 20 mg PO DAILY 05/12/22 05/12/22 History SUMAtriptan succinate [Imitrex] 100 mg PO DAILY PRN 05/12/22 05/12/22 History Allergies Allergy/AdvReac Type Severity Reaction Status Date / Time Penicillins Allergy Rash/Hives Verified 05/12/22 08:05 Sulfa (Sulfonamide Allergy Rash & Verified 05/12/22 08:05 Antibiotics) "Face Froze" sulfamethoxazole Allergy Rash/Hives Verified 05/12/22 08:05 [From Bactrim] trimethoprim [From Bactrim] Allergy Rash/Hives Verified 05/12/22 08:05 prochlorperazine AdvReac Shaking Verified 05/12/22 08:05 [From Compazine] Exam Vital Signs Temp Pulse Pulse Resp BP BP Pulse Ox 05/12/22 14:15 98.8 F 85 18 126/75 97 05/12/22 13:49 98.6 F 81 18 131/79 95 05/12/22 12:33 98.3 F 90 17 122/78 93 L 05/12/22 09:00 98.7 F 87 16 116/91 96 05/12/22 04:11 98 F 96 16 152/98 96 Intake and Output 05/12/22 05/12/22 05/12/22 06:59 14:59 22:59 Other: Voiding Method Toilet Weight 99.79 kg 99.79 kg Focused physical exam is performed. This is a pleasant 47 year old female in no apparent distress. Abdomen is soft and nontender to palpation. On pelvic exam, normal external female genitalia are noted. No blood or discharge is noted in the vaginal vault. Cervix is grossly normal appearing. Bimanual exam is notable for a 13-week sized uterus that is anteverted. No adnexal masses are ap preciated. No uterine or adnexal tenderness. Results Result Diagrams: 05/12/22 04:34 05/12/22 04:34 Abnormal Lab Results - Last 24 Hours (Table) 05/12/22 05/12/22 Range/Units 04:34 04:34 BUN 18 H (7-17) mg/dL Glucose 133 H (74-99) mg/dL ALT 37 H (4-34) U/L Urine Protein 1+ H (Negative) Urine Blood Large H (Negative) Ur Leukocyte Esterase Small H (Negative) Urine RBC 87 H (0-5) /hpf Urine Bacteria Rare H (None) /hpf Urine Mucus Rare H (None) /hpf Assessment and Plan Assessment: 47 year old with large endometrial mass Plan: - Patient boarded for surgery with Urology tomorrow. Will plan to perform D&C at this time to sample the endometrium. - Patient consented today for exam under anesthesia, D&C. Discussed risks of bleeding, infection, and uterine perforation. All questions answered. Patient would like to proceed with surgery at this time. Time with Patient: Greater than 30 (35 minutes)
[2022-05-13] MEDS: KETOROLAC 15 MG/ML 1 ML VIAL IVP SCH ×5 (00:07→23:13)
[2022-05-13] MEDS: ONDANSETRON 4 MG/2 ML VIAL IVP PRN ×2 (08:05→23:18)
[2022-05-13] MEDS: SODIUM CHLORIDE 0.9% 1,000 ML IV SCH ×2 (11:43→22:11)
[2022-05-13] MEDS ORDERED: SODIUM CHLORIDE 0.9% 800 ML IV ONE (15:25)
[2022-05-13] MEDS ORDERED: SUCCINYLCHOLINE CHLORIDE 200 MG/10 ML VIAL IV ONE (16:02)
[2022-05-13] MEDS ORDERED: LIDOCAINE 4% LTA KIT (4 ML) TOPICAL ONE (16:02)
[2022-05-13] MEDS ORDERED: MIDAZOLAM 2 MG/2 ML VIAL ONE (16:02)
[2022-05-13] MEDS ORDERED: KETOROLAC 15 MG/ML 1 ML VIAL ONE (16:02)
[2022-05-13] MEDS ORDERED: fentaNYL (PF) 50 MCG/ML 2 ML AMP ONE (16:02)
[2022-05-13] MEDS ORDERED: LIDOCAINE 2% INJ 20 MG/ML (2 ML VIAL) ONE (16:02)
[2022-05-13] MEDS ORDERED: PROPOFOL 10 MG/ML 20 ML VIAL IV ONE (16:02)
[2022-05-13] MEDS ORDERED: HYDROmorphone (PF) 1 MG/ML ONE (16:02)
[2022-05-13] MEDS ORDERED: DEXAMETHASONE SOD PHOSPHATE 4 MG/ML 1 ML VIAL IVP ONE (16:06)
[2022-05-13] MEDS ORDERED: ONDANSETRON 4 MG/2 ML VIAL IVP ONE (16:06)
--- NOTE | 2022-05-13 17:02 | P.OP ---
Date of Procedure: 05/13/22 Preoperative Diagnosis: Endometrial Mass Postoperative Diagnosis: 1. Endometrial Mass 2. Cervical Stenosis Procedure(s) Performed: Exam Under Anesthesia, Dilation and Curettage Implants: None Anesthesia: JULIANA Surgeon: Allison Pinedo Estimated Blood Loss (ml): 5 IV fluids (ml): 100 Urine output (ml): 0 Pathology: other (endometrial curettings) Condition: stable Disposition: floor Indications for Procedure: The patient is a 47 year old who was admitted with right flank pain and found to have an obstructing kidney stone. On imaging, a large 7cm mass was incidentally found on the endometrium with vascularity and appeared to be solid. She does have a history of endometrial ablation 6 years ago. Dilation and Curettage was recommended to the patient to sample the endometrium. Risks of bleeding, infection, and uterine perforation were discussed with the patient. She understands these risks and desires to proceed with the surgery as discussed. Operative Findings: Enlarged, anteverted 13-week sized uterus on bimanual exam. Uterus sounds to 9cm. Minimal tissue removed from the endometrium with curettage. Endometrial curettings sent to pathology. Description of Procedure: The patient was taken to the operating room where a time out was performed to confirm correct patient and correct procedure. General anesthesia was established. The patient was then positioned on the operating table in dorsal lithotomy position in Karsten type stirrups. The patient was then prepped and draped in the normal sterile fashion. Exam under anesthesia was performed with findings as above. Weighted speculum was introduced into the posterior fornix of the vagina and retractor was used to visualize the cervix. A single tooth tenaculum was used to grasp the anterior lip of the cervix. The cervical os was gently dilated with Miller dilators in order to accommodate the medium curette. A small degree of cervical stenosis was noted during dilation. The uterus was then sounded to a length of 9cm. The uterus was curetted and the specimen was placed on a telfa for pathology. All instruments were removed from the vagina. Patient tolerated the procedure well. Sponge, lap, needle, and instrument counts were correct times two. Patient was taken to recovery in stable condition. SCENARIO WRITER to sign off on the patient at this time. She will follow up with Dr. Fagan in the office in 2 weeks time to review the pathology results.
--- NOTE | 2022-05-13 18:20 | P.OP ---
Date of Procedure: 05/13/22 Preoperative Diagnosis: Right ureteral stone Postoperative Diagnosis: Right ureteral stone, bladder mass Procedure(s) Performed: Cystoscopy, right ureteroscopy, holmium laser lithotripsy, stone basketing, bladder biopsy and fulguration Implants: None Anesthesia: JULIANA Surgeon: Shan Villatoro Estimated Blood Loss (ml): 5 Pathology: other (right ureteral stone, bladder biopsy) Condition: stable Disposition: PACU Indications for Procedure: This is a 47-year-old female with history of a 7 mm right-sided distal stone, she is symptomatic from her stone. Option of right-sided ureteroscopy with holmium laser was discussed with her in detail. Risk of bleeding infection injury to the ureter was discussed. She understood all the risk and agreed to proceed Operative Findings: Right sided distal stone, edematous papillary lesion along the bladder neck abnormal appearance, but not completely consistent with transitional cell carcinoma Description of Procedure: Patient brought to the operating room, general anesthesia was induced. She was prepped and draped in sterile fashion placed in a dorsal lithotomy position. Cystoscopy fitted with a 21-Luxembourger sheath was inserted per urethra, cystoscopy was performed which showed an edematous slightly papillary lesion along the bladder neck, This was circumferentially involving the entire bladder neck, it was not completely consistent with transitional cell carcinoma but was abnormal in appearance. Using the biopsy forceps multiple biopsies were taken and sent to pathology. The area of biopsy was carefully fulgurated. There was no injury to the bladder or the urethra during the biopsies. Attention was then carried to the right ureteral orifice, a semirigid ureteroscope was inserted per urethra and advanced up the right ureteral orifice, stone was encountered in the distal ureter. Using the holmium laser the stone was fragmented, sizable fragments were removed and sent for analysis, At this point the ureteroscope was advanced all the way to the proximal ureter which showed no additional stones. Pullback ureteroscopy was performed which showed no sizable fragments or injury to the ureter. There was no ureteral edema, thus stent was not placed. The bladder was emptied at the end of the case. Patient tolerated the procedure well was taken to recovery in stable condition
[2022-05-14] MEDS: KETOROLAC 15 MG/ML 1 ML VIAL IVP SCH ×2 (05:50→12:47)
[2022-05-14 08:00] VITALS: RESP 17
[2022-05-14] MEDS ORDERED: DOCUSATE 100 MG CAP PO PRN (12:38)
[2022-05-14] MEDS: SODIUM CHLORIDE 0.9% 1,000 ML IV SCH (12:41)
[2022-05-14 12:49] VITALS: BP 130/87; PULSE 90; TEMP 98.4
--- NOTE | 2022-05-14 19:39 | P.DS ---
Providers Date of admission: 05/13/22 09:36 Attending physician: Shan Villatoro MD Consults: 05/12/22 09:14 Consult Physician Routine Consulting Provider: Jabier Fagan Consult Reason/Comments: endometrial mass Do you want consulting provider notified?: Yes Primary care physician: Angel Adams - Discharge Diagnosis(es) (1) Right distal ureteral calculus Status: Acute (2) Kidney stone Status: Acute Hospital Course: This is a 47-year-old female admitted to the hospital with intractable pain secondary to right-sided ureteral stone. CT scan also showed evidence of an endometrial mass. The gynecology service was consulted for the mass. Patient was taken to the OR on May 13 for right-sided ureteroscopy with holmium laser. She also underwent a D&C for her endometrial mass. Please see op note dated May 13 for surgery detail. Of note during cystoscopy there was also a questionable bladder mass, and a bladder biopsy was obtained. Patient was discharged home on postoperative day #1. At time of discharge she was tolerating a diet, ambulating, and pain was controlled Patient Condition at Discharge: Stable Plan - Discharge Summary New Discharge Prescriptions: New Ketorolac [Toradol] 10 mg PO Q6HR PRN #15 tab PRN Reason: Pain No Action Naproxen 500 mg PO BID PRN PRN Reason: Migraine Headache Omeprazole 20 mg PO DAILY Multivitamins, Thera [Multivitamin (formulary)] 1 tab PO DAILY Fish Oil(Unknown) 1 cap PO DAILY Cholecalciferol [Vitamin D3 (25 Mcg = 1000 Iu)] 50 mcg PO DAILY SUMAtriptan succinate [Imitrex] 100 mg PO DAILY PRN PRN Reason: Migraine Headache Discharge Medication List Naproxen 500 mg PO BID PRN 06/08/21 [History] Cholecalciferol [Vitamin D3 (25 Mcg = 1000 Iu)] 50 mcg PO DAILY 05/12/22 [History] Fish Oil(Unknown) 1 cap PO DAILY 05/12/22 [History] Multivitamins, Thera [Multivitamin (formulary)] 1 tab PO DAILY 05/12/22 [History] Omeprazole 20 mg PO DAILY 05/12/22 [History] SUMAtriptan succinate [Imitrex] 100 mg PO DAILY PRN 05/12/22 [History] Ketorolac [Toradol] 10 mg PO Q6HR PRN #15 tab 05/14/22 [Rx] Follow up Appointment(s)/Referral(s): Angel Adams MD [Primary Care Provider] - 05/17/22 11:30 am Shan Villatoro MD [STAFF PHYSICIAN] - 1-2 Days (Office will call you either today or Tuesday and give you an appointment date and time) Jabier Fagan MD [STAFF PHYSICIAN] - 05/27/22 10:15 am Patient Instructions/Handouts: Ketorolac (By mouth), Ureteral Stones (DC), Cystoscopy (DC), Bladder Biopsy (DC), Lithotripsy (DC), Ureteroscopy (DC) Discharge Disposition: HOME SELF-CARE
== END 2022-05-14 13:45 | disposition home or self-care (01) | DRG 661 ==
LOC: EC 04:05 → 4SSUR 05:59 → 5NMEDONC 13:27 → OBSVTOIN 05-13 09:36
PROVIDERS: ADMIT Urology; ATTEND Urology
PROC: 0UDB7ZX Extraction of Endometrium, Via Natural or Artificial Opening, Diagnostic (ICD-10-PCS; 2022-05-13)
PROC: 0TC68ZZ Extirpation of Matter from Right Ureter, Via Natural or Artificial Opening Endoscopic (ICD-10-PCS; 2022-05-13)
PROC: 0T568ZZ Destruction of Right Ureter, Via Natural or Artificial Opening Endoscopic (ICD-10-PCS; principal; 2022-05-13 16:10)
PROC: 0T768DZ Dilation of Right Ureter with Intraluminal Device, Via Natural or Artificial Opening Endoscopic (ICD-10-PCS; 2022-05-13 16:10)
PROC: 0TBB8ZX Excision of Bladder, Via Natural or Artificial Opening Endoscopic, Diagnostic (ICD-10-PCS; 2022-05-13 16:10)
DX: N13.2 Hydronephrosis with renal and ureteral calculous obstruction (principal); I87.8 Other specified disorders of veins; M48.02 Spinal stenosis, cervical region; N85.2 Hypertrophy of uterus; G43.909 Migraine, unspecified, not intractable, without status migrainosus; K21.9 Gastro-esophageal reflux disease without esophagitis; Z88.0 Allergy status to penicillin; Z88.2 Allergy status to sulfonamides; Z90.49 Acquired absence of other specified parts of digestive tract; Z88.8 Allergy status to other drugs, medicaments and biological substances; Z87.442 Personal history of urinary calculi
CPT/HCPCS: 36415; 74176; 76830; 80053; 81001; 81025; 82365; 83735; 85025; 88305

== ENCOUNTER → 2022-08-02 | Outpatient (CLI) | payer OTHER ==
--- NOTE | 2022-08-03 10:25 | MM ---
Reason for Exam: Screening (asymptomatic). Last mammogram was performed 4 year(s) and 0 month(s) ago. Patient History: Menarche at age 14. First Full-Term at age 23. Patient has history of breast feeding. Maternal aunt had breast cancer, age 70. Last menstrual period: 07/19/2022 Risk Values: Ann 5 year model risk: 0.8%. NCI Lifetime model risk: 8.5%. Prior Study Comparison: 03/15/2012 Bilateral Diagnostic Mammogram, [facility]. 07/20/2018 Bilateral Screening Mammogram, [facility]. Tissue Density: There are scattered fibroglandular densities. Findings: Analyzed By CAD. Pattern appears stable. No significant interval change is evident. There is a stable chronic nodule within the upper outer aspect left breast. No significant interval changes are evident. No suspicious groups of microcalcifications, spiculated or lobular masses, architectural distortion or other secondary signs of malignancy are mammographically apparent. Overall Assessment: Benign, BI-RAD 2 Management: Screening Mammogram of both breasts in 1 year. A negative mammogram report should not preclude additional follow up of suspicious palpable abnormalities. Patient should continue monthly self breast exam. A clinical breast exam by your physician is recommended on an annual basis and results should be correlated with mammographic findings. Electronically signed and approved by: Sandeep Higgins D.O. Radiologis
== END | disposition home or self-care (01) ==
LOC: RADMAMWWP 12:55
PROVIDERS: ATTEND Obstetrics & Gynecology
DX: Z12.31 Encounter for screening mammogram for malignant neoplasm of breast (principal); Z80.3 Family history of malignant neoplasm of breast
CPT/HCPCS: 77063; 77067

== ENCOUNTER → 2024-03-27 | Outpatient (CLI) | payer OTHER ==
--- NOTE | 2024-04-02 10:48 | MM ---
Reason for Exam: Screening (asymptomatic). Last mammogram was performed 1 year(s) and 8 month(s) ago. Patient History: Menarche at age 14. First Full-Term at age 23. Hysterectomy at age 49. Patient has history of breast feeding. Maternal aunt had breast cancer, age 70. Maternal cousin had breast cancer. Risk Values: Ann 5 year model risk: 0.8%. NCI Lifetime model risk: 8.3%. Prior Study Comparison: 03/15/2012 Bilateral Diagnostic Mammogram, [facility]. 07/20/2018 Bilateral Screening Mammogram, [facility]. 08/02/2022 Bilateral MG 3D screening mammo w/cad, [facility]. Tissue Density: There are scattered areas of fibroglandular density. Findings: Analyzed By CAD. There is no suspicious group of microcalcifications or new suspicious mass in either breast. Overall Assessment: Negative, BI-RAD 1 Management: Screening Mammogram of both breasts in 1 year. . Patient should continue monthly self-breast exams. A clinical breast exam by your physician is recommended on an annual basis. This exam should not preclude additional follow-up of suspicious palpable abnormalities. Note on Ann scores and lifetime risk: 1. A Ann score greater than 3% is considered moderate risk. If this is the case, consider specialist referral to assess eligibility for a risk reducing agent. 2. If overall lifetime risk for the development of breast cancer is 20% or higher, the patient may qualify for future screening with alternating mammogram and breast MRI. [facility], , 04/02/2024 10:45 AM. Electronically signed and approved by: Abisai Soto M.D. Radiologis
== END | disposition home or self-care (01) ==
LOC: RADMAMWWP 14:17
PROVIDERS: ATTEND Obstetrics & Gynecology
DX: Z12.31 Encounter for screening mammogram for malignant neoplasm of breast (principal); Z80.3 Family history of malignant neoplasm of breast; R92.323 Mammographic fibroglandular density, bilateral breasts
CPT/HCPCS: 77063; 77067